=== PATIENT | female | born 1980 | race Caucasian/White ===

== ENCOUNTER → 2018-06-08 10:27 | Outpatient (CLI) | payer OTHER, SELFPAY ==
[2018-06-08 11:35] LABS: Add Manual Diff / Slide Review NO; Basophils Absolute Auto 0 /uL (0-100); Basophils Percent Auto 0.4 % (0-2); Eosinophils Absolute Auto 0 /uL (0-450); Eosinophils Percent Auto 0.6 % (2-4); Hemoglobin 13.4 g/dL (12.0-16.0); Lymphocytes Absolute Auto 1400 /uL (1100-4500); Lymphocytes Percent Auto 20.9 % (25-40); Mean Corpuscular HGB Conc 33.5 % (30-36); Mean Corpuscular Hemoglobin 31.8 PG (26-34); Monocytes Absolute Auto 400 /uL (0-900); Monocytes Percent Auto 5.8 % (3-14); Neutrophils Absolute Auto 4900 /uL (1500-7000); Neutrophils Percent Auto 72.3 % (50-75); Platelet Count 211 X10^3/uL (150-400); Red Blood Cell Count 4.21 X10^6/uL (4.0-5.2); Red Cell Distribution Width 13.9 % (11.6-14.8); White Blood Cell Count 6.8 X10^3/uL (4.5-11.0)
[2018-06-08 11:56] LABS: Hepatitis B Surface Antigen NEGATIVE s/c (NEGATIVE)
[2018-06-08 12:08] LABS: HIV 1 and 2 Antibody NEGATIVE (NEGATIVE); Hep C Virus Ab w/Reflex Quant NEGATIVE s/c (NEGATIVE)
[2018-06-08 12:49] LABS: Appearance Urine UA CLEAR; Bilirubin Urine UA NEGATIVE (NEGATIVE); Color Urine UA YELLOW; Glucose Urine UA NEGATIVE (Negative); Ketones Urine UA NEGATIVE (NEGATIVE); Leukocyte Esterase Urine UA NEGATIVE (NEGATIVE); Nitrite Urine UA NEGATIVE (Negative); Occult Blood Urine UA NEGATIVE (Negative); Protein Urine UA NEGATIVE (Negative); Urobilinogen Urine UA 0.2 E.U./dL (0.2)
[2018-06-11 11:09] LABS: RPR Screen Nonreactive (Nonreactive)
== END ==
PROVIDERS: PCP Family Medicine; Visit Provider Obstetrics & Gynecology
DX: O09.529 Supervision of elderly multigravida, unspecified trimester (principal)
CPT/HCPCS: 36415; 80055; 81003; 86703; 86787; 86803; 86850; 86900; 86901; 87086

== ENCOUNTER → 2018-08-08 12:57 | Outpatient (CLI) | payer OTHER, SELFPAY ==
[2018-08-15 12:43] LABS: AFP, Serum 42.7 ng/mL; Calc Gestational Age 17.4; Cigarette Smoker N; Donated Egg NOT GIVEN; Donor Egg Age NOT GIVEN; Estriol, Free 1.54 ng/mL; Inhibin A, Dimeric 175 pg/mL; Maternal Weight 146 lbs; Number of Fetuses NOT GIVEN; Previous Pregnancy Down Syndro NOT GIVEN; hCG, MoM 1.36
== END ==
PROVIDERS: PCP Family Medicine; Visit Provider Obstetrics & Gynecology
DX: Z34.82 Encounter for supervision of other normal pregnancy, second trimester (principal)
CPT/HCPCS: 36415; 82105; 82677; 84702; 86336

== ENCOUNTER → 2018-08-28 13:19 | Outpatient (CLI) | payer OTHER, SELFPAY ==
--- NOTE | 2018-08-28 13:20 | DI.US.S_ITS ---
PROCEDURE: US OB >= 14 WEEKS FETUS INDICATIONS: ANATOMY SURVEY OUTSIDE/PRIOR DATING DATA: Last menstrual period (LMP): Not available. LMP-based estimated date of delivery (DELISA): Not available. First dating scan (date and location): 06/07/2018. Estimated date of delivery (DELISA) from first dating scan: 01/07/2019. TECHNIQUE: Real-time scanning was performed of the fetus, with image documentation and biometric measurements. Endovaginal scanning: Not performed COMPARISON: [facility], , OB < 14 WEEKS, 06/07/2018, 11:57. [facility], , OB >= 14 WEEKS FETUS, 08/08/2018, 12:52. FINDINGS: General: A single living intrauterine gestation is present. Presentation: Variable. Placenta: Placental position is posterior, without previa. Amniotic fluid index: 14.3 cm, normal range is 5-24 cm. The largest pocket 4.1 cm. heart rate: 149 beats per minute. Maternal cervical canal: C1-6 cm long. Normal lower limit is 2.5 cm. biometrics: Biparietal diameter: 20 weeks 3 days Head circumference: 20 weeks 6 days Abdominal circumference: 21 weeks 4 days Femur length: 20 weeks 5 days Estimated gestational age from initial scan: 20 weeks 0 day. Composite gestational age from present scan: 21 weeks 1 day Estimated weight and percentile: 404 gm; 54% Measurement variability for biometric dating: +/- 7 days from 14 weeks to 15 weeks 6 days gestation, +/- 10 days from 16 weeks to 21 weeks 6 days gestation, +/- 2 weeks from 22 weeks to 27 weeks 6 days gestation, +/- 3 weeks for 28 weeks gestation or later. weight reference: 4500 g or EFW >90/95% is considered macrosomia or large for gestational age. EFW <10% is small for gestational age. EFW 5% or less is considered intra-uterine growth restriction. Anatomic survey: Neuro: Ventricles are non-dilated at less than 10 mm. Cisterna magna is normal at 3-11 mm. Cerebellum is normal in size and morphology. Nuchal skin fold: Normal at less than 6 mm between 14-21 weeks gestational age. Face: Nose and lips, facial profile are normal. Spine: No evidence for spina bifida. Heart: 4-chambered heart is present, with normal ventricular outflow tracts. Diaphragm: Diaphragm is intact. Stomach: Left-sided stomach is present. Kidneys: No hydronephrosis. Normal is less than 5 mm in 2nd trimester, less than 7 mm in 3rd trimester. Cord: 3-vessel cord has orthotopic insertion. Bladder: Normal in size. Extremities: All 4 extremities identified. IMPRESSION: 1. A single living intrauterine gestation with appropriate interval growth. 2. Normal anatomic survey. Dictated by: Charissa Delarosa M.D. on 08/29/2018 at 9:17 Approved by: Charissa Delarosa M.D. on 08/29/2018 at 9:21
== END ==
PROVIDERS: PCP Family Medicine; Visit Provider Obstetrics & Gynecology
DX: Z34.82 Encounter for supervision of other normal pregnancy, second trimester (principal); Z3A.21 21 weeks gestation of pregnancy
CPT/HCPCS: 76811

== ENCOUNTER → 2018-10-11 09:39 | Outpatient (CLI) | payer OTHER, SELFPAY ==
[2018-10-11 11:15] LABS: Hemoglobin 10.8 g/dL (12.0-16.0)
[2018-10-11 11:21] LABS: GTT (PREG) 1 Hour PP 50gm Dose 96 mg/dL (76-139)
== END ==
PROVIDERS: Family Provider Family Medicine; PCP Family Medicine; Visit Provider Obstetrics & Gynecology
DX: Z34.82 Encounter for supervision of other normal pregnancy, second trimester (principal)
CPT/HCPCS: 36415; 82950; 85014; 85018

== ENCOUNTER → 2018-12-08 09:22 | Outpatient (CLI) | payer OTHER, SELFPAY ==
[2018-12-09 16:21] LABS: Strep Grp B PCR POS for Grp B Strep
== END ==
PROVIDERS: Family Provider Family Medicine; PCP Family Medicine; Visit Provider Obstetrics & Gynecology
DX: Z34.83 Encounter for supervision of other normal pregnancy, third trimester (principal); Z36.85 Encounter for antenatal screening for Streptococcus B; Z3A.34 34 weeks gestation of pregnancy
CPT/HCPCS: 87653

== ENCOUNTER 2019-01-04 16:17 | Outpatient (CLI) | payer OTHER, SELFPAY | END 2019-01-04 17:15 | disposition home or self-care (01) | LOC: LABOR 16:31 → OB 01-05 11:26 | PROVIDERS: Family Provider Family Medicine; PCP Family Medicine; Visit Provider Obstetrics & Gynecology | DX: O09.523 Supervision of elderly multigravida, third trimester (principal); O36.8130 Decreased fetal movements, third trimester, not applicable or unspecified; Z3A.38 38 weeks gestation of pregnancy | CPT/HCPCS: 59025; G0378; G0379 ==

== ENCOUNTER 2019-01-07 09:11 | Inpatient (IN) | payer OTHER, SELFPAY ==
[2019-01-07] MEDS: LACTATED RINGERS 1,000 ML 100 ML IV ×3 (11:50→21:00)
[2019-01-07 12:11] LABS: Add Manual Diff / Slide Review NO; Basophils Absolute Auto 0 /uL (0-100); Basophils Percent Auto 0.5 % (0-2); Eosinophils Absolute Auto 100 /uL (0-450); Eosinophils Percent Auto 0.5 % (2-4); Hematocrit 36.2 % (36-46); Hemoglobin 12.6 g/dL (12.0-16.0); Lymphocytes Absolute Auto 1500 /uL (1100-4500); Lymphocytes Percent Auto 15.9 % (25-40); Mean Corpuscular HGB Conc 34.7 % (30-36); Mean Corpuscular Hemoglobin 33.9 PG (26-34); Mean Corpuscular Volume 97.9 fL (80-100); Monocytes Absolute Auto 500 /uL (0-900); Monocytes Percent Auto 5.8 % (3-14); Neutrophils Absolute Auto 7200 /uL (1500-7000); Neutrophils Percent Auto 77.3 % (50-75); Platelet Count 193 X10^3/uL (150-400); Red Cell Distribution Width 14.7 % (11.6-14.8); White Blood Cell Count 9.4 X10^3/uL (4.5-11.0)
[2019-01-07] MEDS: PENICILLIN G POTASSIUM 5,000,000 UNIT in DEXTROSE 5% IN WATER 250 ML IV (12:25)
[2019-01-07] MEDS: PENICILLIN G POTASSIUM 3,000,000 UNIT/50 ML FROZ.PIGGY 100 UNIT IV (17:20)
[2019-01-07 17:30] VITALS: BP 113/76
[2019-01-07] MEDS: OXYTOCIN PREMIX 30 UNIT/500 ML PLAST..BAG IV (17:47)
--- NOTE | 2019-01-07 18:23 | PM.OBHP.1 ---
OB HPI Date/Time Date of admission: 01/07/19 Date Patient Seen: 01/07/19 Time Patient Seen: 18:25 History of Present Condition Chief complaint: OBSERVATION : 3 Para: 1 Estimated Date of Delivery: 01/13/19 Estimated Gestational Age (weeks): 39+1 Narrative: Florence Jiménez is a 38 year old female 3 para 1 who presented earlier today in early labor. She is group B strep positive and received 1 dose of antibiotics. She was sent home to walk and came back 4 hours later for 2nd dose of antibiotics. She is 4-5 cm/85% effaced Indications Indication for induction OB: other (GBS pos, Early labor) History of Present care: good care, initiated at week # (8), number of visits (10) and pounds weight gain (33) Dating criteria: LMP confirmed by 1st trimester US Ultrasounds: normal 1st trimester US and normal mid trimester US Obstetrical complications: none Medical complications: none Preadmission Labs Blood type: A (+) positive -: Antibody screen: negative, GBS status: positive, HBsAG: negative, HIV: negative and RPR/VDLR: negative -: Chlamydia screen: not detected and Gonorrhea screen: not detected -: Rubella: immune and Varicella: immune HCT: 31 HCAB: negative PAP: Normal Quad screen: Normal Urine: negative 1 hr GTT: 96 Prior (ies) History: 10/02 D&C 14 wks Cystic hygroma 09/28/15 8#1oz epid IH Evaluation Evaluation Baseline heart rate: 140 Variability: Moderate (11-25) monitor accelerations: Present monitor decelerations: Absent Contraction Frequency (minutes): 4 Uterine Contraction Intensity: Moderate Category of Tracing: I Cervical dilation (cm): 4 Cervical effacement (%): 85 station: -1 Laboratory results: Laboratory Tests 01/07/19 01/07/19 11:50 11:50 WBC 9.4 RBC 3.70 L Hgb 12.6 Hct 36.2 MCV 97.9 MCH 33.9 MCHC 34.7 RDW 14.7 Plt Count 193 Neut % (Auto) 77.3 H Lymph % (Auto) 15.9 L [place] % (Auto) 5.8 Eos % (Auto) 0.5 L Baso % (Auto) 0.5 Neut # (Auto) 7200 H Lymph # (Auto) 1500 [place] # (Auto) 500 Eos # (Auto) 100 Baso # (Auto) 0 Blood Type A Positive Antibody Screen Negative PFSH Surgical History (Updated 07/19/17 @ 06:02 by Conversion Provider) Status post dilation and curettage (09/19/14) Family History (Updated 01/28/15 @ 00:00 by Conversion Provider) Brother Age: 44 Hypertension Brother Age: 33 Hypertension Father Age: 70 Cancer Heart disease Hypertension Grandmother Cancer Grandfather Cancer Grandmother Cancer Sister Age: 46 Cancer Sister Age: 33 Cancer Social History Smoking Status: Never smoker Family History (Updated 01/28/15 @ 00:00 by Conversion Provider) Brother Age: 44 Hypertension Brother Age: 33 Hypertension Father Age: 70 Cancer Heart disease Hypertension Grandmother Cancer Grandfather Cancer Grandmother Cancer Sister Age: 46 Cancer Sister Age: 33 Cancer Social History Smoking Status: Never smoker Meds Home Medications and Allergies Home Medications Medication Instructions Recorded Confirmed Type [Probiotic] #0 11/10/15 03/12/18 History prenat.vits,stewart,toy-zhnd-vggcv 1 tab PO DAILY 05/31/18 05/31/18 History Allergies Allergy/AdvReac Type Severity Reaction Status Date / Time cephalexin [CEPHALEXIN] AdvReac Severe C.Difficile Verified 03/12/18 15:45 Exam Vital Signs (past 8 hours): - 01/07/19 17:30 Blood Pressure 113/76 Narrative Exam Narrative: Generally: Patient in mild distress secondary to contractions Fundal height: 37 cm Estimated weight: 7-1/2 lb Extremities: Negative Homans, no edema Objective Labs Result Diagrams: 01/07/19 11:50 Labs: Laboratory Results - last 24 hr 01/07/19 01/07/19 11:50 11:50 WBC 9.4 RBC 3.70 L Hgb 12.6 Hct 36.2 MCV 97.9 MCH 33.9 MCHC 34.7 RDW 14.7 Plt Count 193 Neut % (Auto) 77.3 H Lymph % (Auto) 15.9 L [place] % (Auto) 5.8 Eos % (Auto) 0.5 L Baso % (Auto) 0.5 Neut # (Auto) 7200 H Lymph # (Auto) 1500 [place] # (Auto) 500 Eos # (Auto) 100 Baso # (Auto) 0 Blood Type A Positive Antibody Screen Negative Assessment and Plan Assessment and Plan Assessment and Plan narrative: Assessment: 38-year-old 3 para 1 at 39-,1/7 weeks gestation in early labor and positive group B strep Advanced maternal age Plan: Status post 2 doses of antibiotics for GBS prophylaxis Artificial rupture of membranes with copious amounts of clear amniotic fluid Epidural as necessary Pitocin augmentation Expected management to spontaneous vaginal delivery Time Spent with Patient Total time spent with greater than 50% in coordination of care (as documented) at patient's floor/unit and/or counseling patient:: 15-24 minutes
[2019-01-07] MEDS: FENT 2MCG/ML BUPIV 0.125% EPI 200 MCG/100 ML PLAST..BAG 5 MCG EPIDURAL (20:33)
--- NOTE | 2019-01-07 22:20 | PM.OBPRVD ---
 Events: Labor Augmentation Labor & Delivery Delivery date: 01/07/19 Cervical ripening method: none Induction method: none Delivery augmentation: rupture of membranes and pitocin Delivery monitor: external FHT and external uterine Route of delivery: Episiotomy description: None L&D Laceration Description: Superficial (Left labial, introitus 1.5cm Left vulvar inclusion cyst removed) Delivery repair: vicryl and chromic Estimated blood loss (mL): 100 Anesthesia type: Epidural Complications: None Narrative: Patient complete and pushed for 13 minutes. At 9:50 p.m., a live male delivered with vacuum assistance over an intact perineum. Vacuum applied due to deep variable decelerations with pushing. The vacuum was removed. A nuchal cord x1 was reduced on the perineum. The remainder of the body delivered without difficulty and was placed on mom's abdomen. After the cord stopped pulsing, the cord was double clamped and cut. Cord bloods were obtained. Pitocin was given in the IV fluids. At 10:03 p.m., the placenta delivered intact with a three-vessel cord. The fundus was massaged to firm. An in-and out catheter was performed with a small amount of clear yellow urine. A superficial left labial laceration was repaired with 4 0 chromic with simple interrupted sutures. A superficial introitus laceration was repaired with 4 0 chromic with simple interrupted sutures. An inclusion cyst on the left vulva, 1.5 cm, was excised. Interrupted sutures with 4 0 Vicryl were used for reapproximation. Estimated blood loss 100 cc. Apgars 9 at 1 minute and 9 at 5 minutes. Epidural analgesia. . Mom and infant stable to recovery. Plan for aftercare: To routine care
[2019-01-08] MEDS: IBUPROFEN 600 MG TABLET PO ×4 (05:08→23:27)
[2019-01-08 07:32] LABS: Hematocrit 32.3 % (36-46); Hemoglobin 11.3 g/dL (12.0-16.0)
[2019-01-08] MEDS: DOCUSATE 250 MG CAPSULE PO (09:19)
[2019-01-08] MEDS: PRENATAL VIT,CALC/IRON/FOLIC 1 TABLET 1 TAB PO (09:19)
--- NOTE | 2019-01-08 18:57 | PM.OBPN.1 ---
Subjective - OB Subjective Patient comments: no complaints and pain well controlled baby status: doing well and nursing well feeding status: exclusively breast feeding Narrative: Patient is a 38-year-old 2 para 2 day # 1 status post spontaneous vaginal delivery. Patient complained of a headache which has resolved after some coffee and fluids. Date Patient Seen: 01/08/19 Time Patient Seen: 13:30 Exam Vital Signs (past 8 hours): Generally: Patient is sitting up in bed, no acute distress Fundus: Firm at U -1 Extremities: Negative Homans, no edema Objective Labs Result Diagrams: 01/08/19 Unknown Labs: Laboratory Results - last 24 hr 01/08/19 Unknown Hgb 11.3 L Hct 32.3 L Assessment & Plan Plan day: 1 plan OB: routine care Time Spent With Patient Time: Total time spent is greater than 50% in coordination of care (as documented) at patient's floor/unit and/or counseling patient: Time with patient: 15-24 minutes
[2019-01-09] MEDS: IBUPROFEN 600 MG TABLET PO (05:11)
[2019-01-09 10:26] VITALS: BP 113/76; PULSE 80; RESP 18; TEMP 36.9
--- NOTE | 2019-01-09 18:10 | P.DS_ITS ---
Discharge Providers Provider Date of admission: 01/07/19 09:11 Discharge Date: 01/09/19 Primary care physician: Gabby Henning MD Consults: 01/07/19 23:31 Consult to Supervisor Line Department Routine Comment: Discharge provider: Jessica Sigala MD Summary Hospital Course Date Patient Seen: 01/09/19 Time Patient Seen: 08:30 Procedures: Artificial rupture of membranes Pitocin augmentation of labor Epidural analgesia Vacuum assisted vaginal delivery Superficial left labial laceration repair Hospital Course: Patient is a 38-year-old 2 para 2 who presented in early/active labor and was 4 cm dilated. She was group B strep positive. A decision was made to keep her in the hospital and start prophylactic antibiotics. Once she received her 2nd dose of antibiotics, artificial rupture membranes was performed with clear amniotic fluid. She received an epidural for pain management. She had a vacuum assisted vaginal delivery without complication. She was discharged home on day # 2. was going well. Pain was well controlled with ibuprofen. Peripartum Data Infant Delivery Method: Assisted Delivery (Vacuum) Laceration description: Superficial (Left labial) Episiotomy description: None Procedures: Pitocin augmentation of labor Artificial rupture of membranes Epidural analgesia Vacuum assisted vaginal delivery Left labial laceration repair complications: none Status at Discharge Cognitive/behavioral status at discharge: oriented Functional status at discharge: independent ambulation Overall status at discharge: patient is progressing back to baseline Time Spent with Patient Time attestation: Total time spent providing and/or coordinating discharge services: Time spent: Less than 30 minutes Objective Labs Result Diagrams: 01/08/19 Unknown Exam Vital Signs (past 8 hours): - 01/09/19 10:26 Temperature 98.4 F Pulse Rate 80 Respiratory Rate 18 Blood Pressure 113/76 Narrative Exam Narrative: Generally: A well-developed, well-nourished female, no acute distress Fundus: Firm at U -1 Extremities: Negative Homans, no edema Discharge Plan Discharge Plan Patient Disposition: Home Discharge comment: Call with fever, chills or bleeding vaginally more than a pad in an hour Discharge Med Rec/Prescriptions Prescriptions: Continued prenat.vits,stewart,aqn-jnjr-rzjpo tablet 1 tab PO DAILY RF: 0 Follow up/Referrals: Jessica Sigala MD [Physician] - 02/20/19 11:00 am (to see Dr Sigala on February 20 at 1100am) Provider Discharge Instructions Diet: Regular Activity: No intercourse Skin/Wound/Dressing Care Report to your healthcare provider any signs of infection, such as:: chills, fever, increased pain and unusual drainage Visit Report/Discharge Packet Instructions: DI for Labor and Delivery, Vaginal Stand Alone Forms: Discharge: Care Discharge Data Primary Care Provider: Gabby Henning Discharges patient from system. Discharge Date/Time: 01/09/19 12:45
== END 2019-01-09 12:45 | disposition home or self-care (01) | DRG 768 ==
PROVIDERS: Admitting Provider Obstetrics & Gynecology; PCP Family Medicine; Visit Provider Obstetrics & Gynecology
DX: O99.824 Streptococcus B carrier state complicating childbirth (principal); Z37.0 Single live birth; Z3A.39 39 weeks gestation of pregnancy; O70.0 First degree perineal laceration during delivery; L72.0 Epidermal cyst; O69.81X0 Labor and delivery complicated by cord around neck, without compression, not applicable or unspecified
CPT/HCPCS: 01967; 36415; 59025; 59050; 59400; 85014; 85018; 85025; 86850; 86900; 86901; G0379; J2540; J2590

== ENCOUNTER → 2019-07-25 16:24 | Outpatient (CLI) | payer OTHER, SELFPAY ==
[2019-07-25 16:52] LABS: Bacteria Urine None Seen; RBC Urine None Seen (0-5/HPF); WBC Urine None Seen (0-5/HPF)
[2019-07-25 18:04] LABS: Appearance Urine UA CLEAR; Bilirubin Urine UA NEGATIVE (NEGATIVE); Color Urine UA YELLOW; Glucose Urine UA NEGATIVE (Negative); Ketones Urine UA NEGATIVE (NEGATIVE); Leukocyte Esterase Urine UA NEGATIVE (NEGATIVE); Nitrite Urine UA NEGATIVE (Negative); Occult Blood Urine UA NEGATIVE (Negative); Protein Urine UA NEGATIVE (Negative); Specific Gravity Urine UA <=1.005 (1.000-1.035); Urobilinogen Urine UA 0.2 E.U./dL (0.2)
[2019-07-25 18:14] LABS: Squamous Epithelial Cell Urine 0-1 /HPF (0-5/HPF); pH Urine UA 6.5 (4.5-8.0)
[2019-07-25 18:15] LABS: Culture Indicated Urine Cult Not Indicated
== END ==
PROVIDERS: PCP Family Medicine; Referring Provider Family Medicine; Visit Provider Family Medicine
DX: R10.2 Pelvic and perineal pain (principal)
CPT/HCPCS: 81001

== ENCOUNTER → 2019-08-02 12:25 | Outpatient (CLI) | payer OTHER, SELFPAY | PROVIDERS: PCP Family Medicine; Visit Provider Family Medicine | DX: M54.5 Low back pain (principal) | CPT/HCPCS: 87077; 87086 ==

== ENCOUNTER → 2020-04-12 10:46 | Outpatient (CLI) | payer BC, SELFPAY ==
[2020-04-12 12:44] LABS: Adenovirus F 40/41 Not Detected (Not Detect); Astrovirus Not Detected (Not Detect); Campylobacter Not Detected (Not Detect); Clostridium difficile toxin AB Not Detected (Not Detect); Cryptosporidium Not Detected (Not Detect); Cyclospora cayetanensis Not Detected (Not Detect); Entamoeba histolytica Not Detected (Not Detect); Enteroaggregative E.coli Not Detected (Not Detect); Enteropathogenic E.coli Not Detected (Not Detect); Enterotoxigenic E.coli It/st Not Detected (Not Detect); Giardia lamblia Not Detected (Not Detect); Norovirus GI/GII Not Detected (Not Detect); Plesiomonsa shigelloides Not Detected (Not Detect); Rotavirus A Not Detected (Not Detect); Salmonella Not Detected (Not Detect); Sapovirus Not Detected (Not Detect); Shiga-like toxin-prod E.coli Not Detected (Not Detect); Shigella/Enteroinvasive E.coli Not Detected (Not Detect); Vibrio Not Detected (Not Detect); Vibrio cholerae Not Detected (Not Detect); Yersinia enterocolitica Not Detected (Not Detect)
== END ==
PROVIDERS: PCP Family Medicine; Referring Provider Physician Assistant; Visit Provider Physician Assistant
DX: Z87.19 Personal history of other diseases of the digestive system (principal); Z86.19 Personal history of other infectious and parasitic diseases
CPT/HCPCS: 87507

== ENCOUNTER → 2020-06-09 13:29 | Outpatient (CLI) | payer BC, SELFPAY ==
[2020-06-09 13:32] LABS: Bacteria Urine None Seen; RBC Urine None Seen (0-5/HPF); WBC Urine None Seen (0-5/HPF)
[2020-06-09 13:56] LABS: Appearance Urine UA CLEAR; Bilirubin Urine UA NEGATIVE (NEGATIVE); Color Urine UA YELLOW; Glucose Urine UA NEGATIVE (Negative); Ketones Urine UA NEGATIVE (NEGATIVE); Leukocyte Esterase Urine UA NEGATIVE (NEGATIVE); Nitrite Urine UA NEGATIVE (Negative); Occult Blood Urine UA TRACE-LYSED (Negative); Protein Urine UA NEGATIVE (Negative); Specific Gravity Urine UA <=1.005 (1.000-1.035); Urobilinogen Urine UA 0.2 E.U./dL (0.2)
[2020-06-09 14:10] LABS: Amorphous Sediment Urine 1+; Culture Indicated Urine Cult Not Indicated
== END ==
PROVIDERS: PCP Family Medicine; Referring Provider Family Medicine; Visit Provider Family Medicine
DX: R30.0 Dysuria (principal); R39.15 Urgency of urination
CPT/HCPCS: 81001

== ENCOUNTER → 2021-01-16 14:49 | Outpatient (CLI) | payer BC, SELFPAY ==
--- NOTE | 2021-01-16 14:49 | DI.US.S_ITS ---
PROCEDURE: US OB <= 14 WEEKS FETUS INDICATIONS: INITIAL US FOR DATING AND VIABILITY OUTSIDE/PRIOR DATING DATA: Last menstrual period (LMP): November 04, 2000 LMP-based estimated date of delivery (DELISA): August 11, 2021 First dating scan (date and location): January 16, 2021 Estimated date of delivery (DELISA) from first dating scan: August 04, 2021 TECHNIQUE: Real-time scanning was performed of the fetus and maternal pelvic organs, with image documentation. Endovaginal scanning was also performed to better visualize the fetus and maternal ovaries. COMPARISON: None. FINDINGS: Embryo: Single living intrauterine identified. pole identified. [place]-rump length measures 4.6 centimeters corresponding to ultrasound estimated gestational age of 11 weeks 3 days. Heart rate: 165 beats per minute. Measurement variability in dating: +/- 4 weeks by LMP, +/- 7 days by mean sac diameter (use before 6 weeks gestation if crown-rump length not able to be measured), +/- 5 days by crown-rump length (up to 8 weeks 6 days gestation), +/- 7 days by crown-rump length (up to 13 weeks 6 days gestation). Maternal organs: Ovary not visualized and cannot be evaluated. Left ovary is sonographically normal. Cervix is closed and measures 3.9 centimeters. IMPRESSION: Single living intrauterine with ultrasound estimated gestational age of 11 weeks 3 days corresponding to ultrasound DELISA of August 04, 2021. Dictated by: Flor Celis MD, PhD on 01/16/2021 at 17:22 Approved by: Flor Celis MD, PhD on 01/16/2021 at 17:23
== END ==
PROVIDERS: PCP Family Medicine; Referring Provider Obstetrics & Gynecology; Visit Provider Obstetrics & Gynecology
DX: Z34.81 Encounter for supervision of other normal pregnancy, first trimester (principal); Z3A.11 11 weeks gestation of pregnancy
CPT/HCPCS: 76801; 76817

== ENCOUNTER 2021-01-23 17:52 | Emergency (ER) | payer BC, SELFPAY ==
[2021-01-23 17:59] VITALS: BP 144/76; PULSE 78; RESP 12; TEMP 36.7; O2SAT 100; BMI 19.5
--- NOTE | 2021-01-23 18:04 | DI.US.S_ITS ---
PROCEDURE: US OB <= 14 WEEKS FETUS INDICATIONS: 11 wks, vaginal bleeding OUTSIDE/PRIOR DATING DATA: Last menstrual period (LMP): 11/04/2020 . LMP-based estimated date of delivery (DELISA): 08/11/2021 . First dating scan (date and location): 01/16/[address] [facility] . Estimated date of delivery (DELISA) from first dating scan: 08/04/2021. TECHNIQUE: Real-time scanning was performed of the fetus and maternal pelvic organs, with image documentation. Endovaginal scanning: Performed for better visualization of the fetus and maternal adnexal structures. COMPARISON: [facility], US, OB <= 14 WEEKS FETUS, 01/16/2021, 15:18. FINDINGS: Embryo : There is a single intrauterine redemonstrated with a crown-rump length of 5.8 cm corresponding to gestational age of 12 weeks 2 days. A heterogeneous irregular perigestational hypoechoic collection is demonstrated consistent with a subchorionic hematoma measuring approximately 3.5 x 1.5 x 1.8 cm. Heart rate: 152 beats per minute. Measurement variability in dating: +/- 4 weeks by LMP, +/- 7 days by mean sac diameter (use before 6 weeks gestation if crown-rump length unable to be measured), +/- 5 days by crown-rump length (up to 8 weeks 6 days gestation), +/- 7 days by crown-rump length (up to 13 weeks 6 days gestation). Maternal organs: The right ovary was not well seen. The left ovary is normal in size. IMPRESSION: 1. Single living intrauterine with calculated gestational age of 12 weeks 2 days. 2. Irregular perigestational collection consistent with a subchorionic hematoma. Recommend clinical follow-up and a repeat ultrasound if indicated. Dictated by: Nando James M.D. on 01/23/2021 at 19:31 Approved by: Nando James M.D. on 01/23/2021 at 19:35
[2021-01-23 18:32] LABS: Add Manual Diff / Slide Review NO; Basophils Absolute Auto 100 /uL (0-100); Basophils Percent Auto 0.8 % (0-2); Eosinophils Absolute Auto 100 /uL (0-450); Eosinophils Percent Auto 0.9 % (2-4); Hematocrit 34.5 % (36-46); Hemoglobin 11.7 g/dL (12.0-16.0); Lymphocytes Absolute Auto 2100 /uL (1100-4500); Lymphocytes Percent Auto 28.1 % (25-40); Mean Corpuscular HGB Conc 33.8 % (30-36); Mean Corpuscular Hemoglobin 32.1 PG (26-34); Mean Corpuscular Volume 94.8 fL (80-100); Monocytes Absolute Auto 500 /uL (0-900); Neutrophils Absolute Auto 4800 /uL (1500-7000); Neutrophils Percent Auto 63.2 % (50-75); Platelet Count 204 X10^3/uL (150-400); Red Blood Cell Count 3.64 X10^6/uL (4.0-5.2); Red Cell Distribution Width 14.5 % (11.6-14.8); White Blood Cell Count 7.6 X10^3/uL (4.5-11.0)
[2021-01-23 18:57] LABS: Alanine Aminotransferase 11 IU/L (<35); Albumin Globulin Ratio 1.3 (1.0-2.8); Alkaline Phosphatase 53 U/L (38-126); Aspartate Aminotransferase 23 IU/L (14-36); Bilirubin Total 0.4 mg/dL (0.2-1.3); Blood Urea Nitrogen 13 mg/dL (7-17); Calcium 9.1 mg/dL (8.4-10.2); Carbon Dioxide 24 mmol/L (22-32); Chloride 103 mmol/L (98-107); Estimated Glomerular Filt Rate > 60.0 mL/min (>60); Globulin 3.2 g/dL (1.7-4.1); Glucose 88 mg/dL (70-100); HEMOLYSIS < 15 (0-50); Potassium 3.6 mmol/L (3.4-5.1); Sodium 134 mmol/L (137-145); Total Protein 7.2 g/dL (6.3-8.2)
[2021-01-23 19:19] VITALS: BP 120/88; PULSE 59; PULSE 70; O2SAT 100
[2021-01-23 19:30] VITALS: BP 98/64; PULSE 57; O2SAT 100
[2021-01-23 19:37] LABS: HCG Quantitative /Beta subunit 115390 mIU/mL
--- NOTE | 2021-01-23 19:55 | ED.PREGNANCY ---
HPI - General Chief complaint: OB/Uterine Contractions Stated complaint: 11 Wks , Bleeding Time Seen by Provider: 01/23/21 18:04 Source: patient Mode of arrival: Ambulatory Limitations: no limitations History of Present Illness HPI Narrative: This is a 40-year-old A1 with prior D&C that is approximately 11 weeks patient is established with Dr. Sigala for her care. Patient states today she had a gush of fluid of fluid leaking and noted bright red blood and states she went through about 1 pad shortly after this. Patient states bleeding has slowed at this time. She has been having some lower abdominal cramping. No lightheadedness or passing out. She has nausea with her but is able to tolerate food and drink. She denies any chest pain or shortness of breath. No dysuria, frequency or urgency. Patient has not had any other vaginal discharge or odor. She denies any other medications besides a daily probiotic and vitamin. She has had 1 D and C but no other surgical history. No tobacco, no alcohol or illicit. She is accompanied by her significant other. Related Data : 4 Para: 2 Total number of abortions (spontaneous and elective): 1 Home Medications Medication Instructions Recorded Confirmed prenat.vits,stewart,wec-nrsb-spkxh 1 tab PO DAILY 05/31/18 03/22/19 probiotics PO 08/02/19 Allergies Allergy/AdvReac Type Severity Reaction Status Date / Time cephalexin [CEPHALEXIN] AdvReac Severe C.Difficile Verified 01/23/21 18:03 Review of Systems Review of Systems ROS Unobtainable: All systems reviewed & are unremarkable except as noted in HPI and below Exam Narrative Exam Narrative: GENERAL: Alert and oriented x three, thin female in mild distress. HEENT: Head normocephalic, atraumatic, EOMI, pupils reactive, face symmetric, moist mucous membranes NECK: Supple, full range of motion CARDIOVASCULAR: Regular rate and rhythm without murmurs, rubs or gallops. RESPIRATORY: Breath sounds equal bilaterally, no wheezes rales or rhonchi. ABDOMEN: Soft, mild suprapubic tenderness. Normoactive bowel sounds all 4 quadrants. No guarding or rebound, rigidity, no mass : No CVA tenderness EXTREMITIES: Normal range of motion, no clubbing or edema. Neurovascularly intact NEUROLOGICAL: Cranial nerves II through XII grossly intact. Moving all extremities SKIN: Warm, dry, no petechiae, no rashes or lesions. Initial Vital Signs Initial Vital Signs: Vital Signs Temperature 98.0 F 01/23/21 17:59 Pulse Rate 78 01/23/21 17:59 Respiratory Rate 12 01/23/21 17:59 Blood Pressure 144/76 H 01/23/21 17:59 Pulse Oximetry 100 01/23/21 17:59 Course Orders Ordered: ED Orders 01/23/21 18:04 US OB <= 14 weeks fetus Stat 01/23/21 18:20 ABO RH Type Stat Complete Blood Count AUTO DIFF Stat Comprehensive Metabolic Panel Stat HCG Quantitative /Beta subunit Stat Vital Signs Vital signs: Vital Signs - 8 hr 01/23/21 20:00 01/23/21 21:07 Pulse Rate 60 53 L Respiratory Rate 18 Blood Pressure 108/59 L 110/67 Pulse Oximetry 100 100 MDM - OB/Uterine Contractions Lab Data Result diagrams: 01/23/21 18:20 01/23/21 18:20 Labs: Lab Results 01/23/21 01/23/21 01/23/21 Range/Units 18:20 18:20 18:20 WBC 7.6 (4.5-11.0) X10^3/uL RBC 3.64 L (4.0-5.2) X10^6/uL Hgb 11.7 L (12.0-16.0) g/dL Hct 34.5 L (36-46) % MCV 94.8 (80-100) fL MCH 32.1 (26-34) PG MCHC 33.8 (30-36) % RDW 14.5 (11.6-14.8) % Plt Count 204 (150-400) X10^3/uL Neut % (Auto) 63.2 (50-75) % Lymph % (Auto) 28.1 (25-40) % [place] % (Auto) 7.0 (3-14) % Eos % (Auto) 0.9 L (2-4) % Baso % (Auto) 0.8 (0-2) % Neut # (Auto) 4800 (5886-3449) /uL Lymph # (Auto) 2100 (1818-9928) /uL [place] # (Auto) 500 (0-900) /uL Eos # (Auto) 100 (0-450) /uL Baso # (Auto) 100 (0-100) /uL Sodium 134 L (137-145) mmol/L Potassium 3.6 (3.4-5.1) mmol/L Chloride 103 (98-107) mmol/L Carbon Dioxide 24 (22-32) mmol/L BUN 13 (7-17) mg/dL Creatinine 0.59 (0.52-1.04) mg/dL Estimated GFR > 60.0 (>60) mL/min BUN/Creatinine Ratio 22.0 (6-22) Glucose 88 (70-100) mg/dL Calcium 9.1 (8.4-10.2) mg/dL Total Bilirubin 0.4 (0.2-1.3) mg/dL AST 23 (14-36) IU/L ALT 11 (<35) IU/L Alkaline Phosphatase 53 (38-126) U/L Total Protein 7.2 (6.3-8.2) g/dL Albumin 4.0 (3.5-5.0) g/dL Globulin 3.2 (1.7-4.1) g/dL Albumin/Globulin Ratio 1.3 (1.0-2.8) HCG, Quant 603307 mIU/mL Blood Type A Positive Urine Dip Bedside Urine Glucose Negative Bedside Urine Bilirubin - Negative Bedside Urine Ketone - Negative Urine Specific [place] 1.030 Bedside Urine Occult Blood +++ Bedside Urine pH 6.0 Bedside Urine Protein - Negative Bedside Urine Urobilinogen - Negative Bedside Urine Nitrite - Negative Bedside Urine Leukocytes - Negative Esterase Imaging Data US - OB: Radiologist's Impression: [place] [address] Ultrasound Report Signed Patient: Florence Jiménez MR#: [id number] : 1980 Acct:[id number] Age/Sex: 40 / F Date of Service: 01/23/21 Loc: ED Accession Number: [id number] ?? Procedure: US OB <= 14 weeks fetus Ordering Provider: Jesenia Jones D.O. PROCEDURE:? US OB <= 14 WEEKS FETUS ? INDICATIONS:? 11 wks, vaginal bleeding ? OUTSIDE/PRIOR DATING DATA:? Last menstrual period (LMP):? 11/04/2020 .? LMP-based estimated date of delivery (DELISA):? 08/11/2021 .? [facility]? Estimated date of delivery (DELISA) from first dating scan:? 08/04/2021.? ? TECHNIQUE:? Real-time scanning was performed of the fetus and maternal pelvic organs, with image documentation.? Endovaginal scanning:? Performed for better visualization of the fetus and maternal adnexal structures.? ? COMPARISON:? [facility], , US OB <= 14 WEEKS FETUS, 01/16/2021, 15:18. ? FINDINGS:? ? Embryo :? There is a single intrauterine redemonstrated with a crown-rump length of 5.8 cm corresponding to gestational age of 12 weeks 2 days.? A heterogeneous irregular perigestational hypoechoic collection is demonstrated consistent with a subchorionic hematoma measuring approximately 3.5 x 1.5 x 1.8 cm. Heart rate:? 152 beats per minute. ? Measurement variability in dating: +/- 4 weeks by LMP, +/- 7 days by mean sac diameter (use before 6 weeks gestation if crown-rump length unable to be measured), +/- 5 days by crown-rump length (up to 8 weeks 6 days gestation), +/- 7 days by crown-rump length (up to 13 weeks 6 days gestation).? ? Maternal organs:? The right ovary was not well seen.? The left ovary is normal in size. ? ? IMPRESSION:? ? 1. Single living intrauterine with calculated gestational age of 12 weeks 2 days. ? 2. Irregular perigestational collection consistent with a subchorionic hematoma.? Recommend clinical follow-up and a repeat ultrasound if indicated.? ? ? Dictated by: Nando James M.D. on 01/23/2021 at 19:31 ? ? Approved by: Nando James M.D. on 01/23/2021 at 19:35?? MDM Narrative Medical decision making narrative: This is a 40-year-old female who comes in with acute onset of vaginal bleeding that is 12 weeks 2 days on ultrasound today with a irregular. Gestational collection consistent with subchorionic hematoma. Patient is A positive and does not require RhoGAM. Patient has a appointment set up for this coming Tuesday in 2 days. At this time pelvic rest, Tylenol as needed and discussed return precautions with patient. Patient is aware that she will require some watchful waiting and time to see if there is worsening of the bleed with potential for miscarriage or if it stabilizes and improves. All questions answered. Discharge Plan Departure Patient Disposition: Home Clinical Impression: Subchorionic hematoma Activity Restrictions/Additional Instructions: Follow up with Dr. Sigala at your appointment on Tuesday. You may take Tylenol to a 1000 mg every 8 hours. Make sure you are drinking plenty of water and staying hydrated. Your imaging today shows a subchorionic hemorrhage. Heart rate is 152 beats per minute on her ultrasound imaging which is in normal range. Is recommended that you pelvic rest. No lifting of heavy objects, sexual activity or tampons. You can still participate in normal activities. Please return for rapidly worsening abdominal pain, lightheadedness or passing out, chest pain or shortness of breath, persistent vomiting, bleeding through more than 1 pad an hour, rapidly worsening bleeding or other new or concerning symptoms. Prescriptions: No Action probiotics PO RF: 0 prenat.vits,stewart,lvp-vhqm-njhhu tablet 1 tab PO DAILY RF: 0 Referrals: Jessica Sigala MD [Physician] - Gabby Henning MD [Primary Care Provider] -
[2021-01-23 20:00] VITALS: BP 108/59; PULSE 60; O2SAT 100
[2021-01-23 21:07] VITALS: BP 110/67; PULSE 53; RESP 18; O2SAT 100
== END 2021-01-23 21:15 | disposition home or self-care (01) ==
PROVIDERS: Emergency Provider Emergency Medicine; PCP Family Medicine
DX: O41.8X90 Other specified disorders of amniotic fluid and membranes, unspecified trimester, not applicable or unspecified (principal); Z3A.11 11 weeks gestation of pregnancy
CPT/HCPCS: 36415; 76801; 76817; 80053; 81003; 84702; 85025; 86900; 86901; 99284

== ENCOUNTER → 2021-01-26 11:40 | Outpatient (CLI) | payer BC, SELFPAY ==
[2021-01-26 14:39] LABS: Urine N gonorrhoeae NOT DETECTED
[2021-01-26 14:40] LABS: Urine Chlamydia NOT DETECTED
== END ==
PROVIDERS: PCP Family Medicine; Referring Provider Obstetrics & Gynecology; Visit Provider Obstetrics & Gynecology
DX: Z34.81 Encounter for supervision of other normal pregnancy, first trimester (principal); Z3A.12 12 weeks gestation of pregnancy
CPT/HCPCS: 87491; 87591

== ENCOUNTER → 2021-02-23 10:07 | Outpatient (CLI) | payer BC, SELFPAY ==
[2021-02-23 13:10] LABS: Add Manual Diff / Slide Review NO; Basophils Absolute Auto 0 /uL (0-100); Basophils Percent Auto 0.5 % (0-2); Eosinophils Absolute Auto 100 /uL (0-450); Eosinophils Percent Auto 1.4 % (2-4); Hematocrit 32.5 % (36-46); Hemoglobin 11.2 g/dL (12.0-16.0); Lymphocytes Absolute Auto 1400 /uL (1100-4500); Lymphocytes Percent Auto 20.3 % (25-40); Mean Corpuscular HGB Conc 34.5 % (30-36); Mean Corpuscular Hemoglobin 33.1 PG (26-34); Mean Corpuscular Volume 96.1 fL (80-100); Monocytes Absolute Auto 500 /uL (0-900); Monocytes Percent Auto 6.9 % (3-14); Neutrophils Absolute Auto 5000 /uL (1500-7000); Neutrophils Percent Auto 70.9 % (50-75); Platelet Count 224 X10^3/uL (150-400); Red Blood Cell Count 3.38 X10^6/uL (4.0-5.2); Red Cell Distribution Width 14.2 % (11.6-14.8)
[2021-02-23 14:27] LABS: Appearance Urine UA CLEAR; Bilirubin Urine UA NEGATIVE (NEGATIVE); Color Urine UA YELLOW; Glucose Urine UA NEGATIVE (Negative); Ketones Urine UA NEGATIVE (NEGATIVE); Leukocyte Esterase Urine UA NEGATIVE (NEGATIVE); Nitrite Urine UA NEGATIVE (Negative); Occult Blood Urine UA NEGATIVE (Negative); Protein Urine UA NEGATIVE (Negative); Urobilinogen Urine UA 0.2 E.U./dL (0.2)
[2021-02-23 17:48] LABS: Hepatitis B Surface Antigen NEGATIVE s/c (NEGATIVE); Rubella Antibody IgG 24.3 IU/mL (>15)
[2021-02-23 18:17] LABS: HIV 1 & 2 Ab/Ag 4th Gen Combo NEGATIVE (NEGATIVE); Hep C Virus Ab w/Reflex Quant NEGATIVE s/c (NEGATIVE)
[2021-02-24 09:45] LABS: RPR Screen Non Reactive (Non Reactive)
[2021-02-26 23:22] LABS: Estriol, Free 0.83 ng/mL (.); Inhibin A, Dimeric 126.52 pg/mL (.); Inhibin A, MoM 0.76 (.); Maternal Ethnicity Caucasian (.); Maternal Weight 145 lbs (.); Number of Fetuses No (.); OSBR Risk 1 IN 10000 (.); Results Report (.); Test Results *Screen Negative* (.); hCG, MoM 1.47 (.); hCG, Serum 65418 mIU/mL (.)
== END ==
PROVIDERS: PCP Family Medicine; Referring Provider Obstetrics & Gynecology; Visit Provider Obstetrics & Gynecology
DX: Z34.82 Encounter for supervision of other normal pregnancy, second trimester; Z3A.16 16 weeks gestation of pregnancy
CPT/HCPCS: 36415; 80055; 81003; 82105; 82677; 84702; 86336; 86787; 86803; 86850; 86900; 86901; 87086; 87389

== ENCOUNTER → 2021-03-25 09:19 | Outpatient (CLI) | payer BC, SELFPAY ==
--- NOTE | 2021-03-25 09:19 | DI.US.S_ITS ---
PROCEDURE: US OB >= 14 WEEKS FETUS INDICATIONS: ANATOMY OUTSIDE/PRIOR DATING DATA: Last menstrual period (LMP): 11/04/2020 LMP-based estimated date of delivery (DELISA): 08/11/2021. First dating scan (date and location): 01/16/2021. Estimated date of delivery (DELISA) from first dating scan: 08/04/2021. The calculations are made using the ultrasound DELISA of 08/04/2021. TECHNIQUE: Real-time scanning was performed of the fetus, with image documentation and biometric measurements. COMPARISON: [facility], , OB <= 14 WEEKS FETUS, 01/26/2021, 10:49. [facility], , US OB >= 14 WEEKS FETUS, 11/15/2018, 9:41. FINDINGS: General: A single living intrauterine gestation is present. Presentation: Breech. Placenta: Placental position is anterior , without previa. Amniotic fluid index: 18.5 cm, normal range is 5-24 cm. heart rate: 147 beats per minute. Maternal cervical canal: 3.7 cm long. Normal lower limit is 2.5 cm. biometrics: Biparietal diameter: 5.0 cm, 21 weeks Head circumference: 18.5 cm, 20 weeks 6 days Abdominal circumference: 15.6 cm, 20 weeks 5 days Femur length: 3.3 cm, 20 weeks 2 days Clinically estimated gestational age: 21 weeks 1 day Composite gestational age from present scan: 20 weeks 5 days Estimated weight and percentile: 366 g; 20th percentile Anatomic survey: Neuro: Ventricles are non-dilated at less than 10 mm. Cisterna magna is normal at 3-11 mm. Cerebellum is normal in size and morphology. Nuchal skin fold: Normal at less than 6 mm between 14-21 weeks gestational age. Face: Nose and lips, facial profile are normal. Spine: No evidence for spina bifida. Heart: 4-chambered heart is present, with normal ventricular outflow tracts. Diaphragm: Diaphragm is intact. Stomach: Left-sided stomach is present. Kidneys: No hydronephrosis. Normal is less than 5 mm in 2nd trimester, less than 7 mm in 3rd trimester. Cord: 3-vessel cord has orthotopic insertion. Bladder: Normal in size. Extremities: All 4 extremities identified. IMPRESSION: 1. Normal interval growth. 2. Normal anatomic survey. We strive to produce accurate, complete, and clear reports of imaging services. To assist us in improving patient care, this report was composed using standard report templates and voice recognition software. Therefore, it may contain abnormal punctuation, insertions and/or omissions. Occasional wrong-word or sound-alike substitutions may occur. Though we review the report and make efforts to correct it, we do recommend that the report be read carefully in proper context to recognize any text inaccuracies. Dictated by: Yunier HERRERA Interpreted: Stef Wood MD on 03/25/2021 at 10:22 Transcribed by: MILE on 03/25/2021 at 10:26 Approved by: Stef Wood M.D. on 03/25/2021 at 20:05
== END ==
PROVIDERS: PCP Family Medicine; Referring Provider Obstetrics & Gynecology; Visit Provider Obstetrics & Gynecology
DX: Z34.82 Encounter for supervision of other normal pregnancy, second trimester (principal); Z3A.20 20 weeks gestation of pregnancy
CPT/HCPCS: 76811

== ENCOUNTER → 2021-05-15 09:50 | Outpatient (CLI) | payer BC, SELFPAY ==
[2021-05-15 11:57] LABS: Hematocrit 30.9 % (36-46); Hemoglobin 10.5 g/dL (12.0-16.0)
[2021-05-15 12:15] LABS: GTT (PREG) 1 Hour PP 50gm Dose 109 mg/dL (76-139)
== END ==
PROVIDERS: PCP Family Medicine; Referring Provider Obstetrics & Gynecology; Visit Provider Obstetrics & Gynecology
DX: Z34.82 Encounter for supervision of other normal pregnancy, second trimester (principal); Z3A.25 25 weeks gestation of pregnancy
CPT/HCPCS: 36415; 82950; 85014; 85018

== ENCOUNTER → 2021-07-15 12:27 | Outpatient (CLI) | payer BC, SELFPAY ==
[2021-07-16 10:20] LABS: Strep Grp B PCR POS for Grp B Strep
== END ==
PROVIDERS: PCP Family Medicine; Visit Provider Obstetrics & Gynecology
DX: Z36.85 Encounter for antenatal screening for Streptococcus B (principal); Z3A.36 36 weeks gestation of pregnancy
CPT/HCPCS: 87653

== ENCOUNTER → 2021-07-23 10:43 | Outpatient (CLI) | payer BC, SELFPAY | PROVIDERS: PCP Family Medicine; Visit Provider Physician Assistant Medical | DX: R31.9 Hematuria, unspecified (principal); Z3A.38 38 weeks gestation of pregnancy | CPT/HCPCS: 87086 ==

== ENCOUNTER 2021-07-28 07:13 | Inpatient (IN) | payer BC, SELFPAY ==
[2021-07-28 07:24] VITALS: BP 121/73
[2021-07-28 08:10] LABS: COVID19 -Nasal RAPID Negative (Negative)
[2021-07-28] MEDS: LACTATED RINGERS 1,000 ML 100 ML IV ×2 (08:29→13:24)
[2021-07-28 08:46] LABS: Add Manual Diff / Slide Review NO; Basophils Absolute Auto 100 /uL (0-100); Basophils Percent Auto 0.7 % (0-2); Eosinophils Absolute Auto 100 /uL (0-450); Eosinophils Percent Auto 0.7 % (2-4); Hematocrit 33.1 % (36-46); Hemoglobin 11.5 g/dL (12.0-16.0); Lymphocytes Absolute Auto 1400 /uL (1100-4500); Lymphocytes Percent Auto 16.9 % (25-40); Mean Corpuscular HGB Conc 34.8 % (30-36); Mean Corpuscular Hemoglobin 34.3 PG (26-34); Mean Corpuscular Volume 98.6 fL (80-100); Monocytes Absolute Auto 700 /uL (0-900); Monocytes Percent Auto 8.7 % (3-14); Neutrophils Absolute Auto 5800 /uL (1500-7000); Platelet Count 181 X10^3/uL (150-400); Red Blood Cell Count 3.35 X10^6/uL (4.0-5.2); Red Cell Distribution Width 14.6 % (11.6-14.8)
[2021-07-28] MEDS: OXYTOCIN PREMIX 30 UNIT/500 ML PLAST..BAG IV (08:48)
--- NOTE | 2021-07-28 09:19 | P.HPOB_ITS ---
OB HPI Date/Time Date of admission: 07/28/21 Date Patient Seen: 07/28/21 Time Patient Seen: 09:19 History of Present Condition Chief complaint: DELISA Calculator Estimated Delivery Date Method Current WG Current Estimate 08/04/21 Ultrasound #1 39w 0d Other Estimates 08/11/21 LMP (Certain) 38w 0d 08/05/21 Ultrasound #2 38w 6d Estimated Gestational Age (weeks): 39 : 4 Para: 2 care: good care, initiated at week # (12), number of visits (9) and pounds weight gain (39) Dating criteria OB: LMP confirmed by 1st trimester US Ultrasounds: normal 1st trimester US and normal mid trimester US Obstetrical complications: none Medical complications OB: none Indications Indication for induction OB: other (AMA) Preadmission Labs Last OB Lab Results: Blood Type A Positive 07/28/21 08:25 07/28/21 Antibody Screen Negative 07/28/21 08:25 07/28/21 Hematocrit 33.1 % (36-46) L 07/28/21 08:25 07/28/21 Hemoglobin 11.5 g/dL (12.0-16.0) L 07/28/21 08:25 07/28/21 Hepatitis B Surface Antigen Negative s/c (NEGATIVE) 02/23/21 10:49 1 04/26/20 Hepatitis C Antibody Negative s/c (NEGATIVE) 02/23/21 10:49 02/23/21 Rubella Antibody 24.3 IU/mL (>15) 02/23/21 10:49 02/23/21 Varicella-Zoster IgG Antibody 946 index (Immune >165) 02/23/21 10:49 02/23/21 Glucose 1 Hour 109 mg/dL (76-139) 05/15/21 11:19 05/15/21 Group B Streptococcus (PCR) Pos for grp b strep H 07/15/21 12:27 07/15/21 -: Chlamydia screen: negative and Gonorrhea screen: negative -: PAP smear: Normal Genetic Screens: Quad screen: Normal Prior (ies) Past Pregnancies Del. Date GA/Weeks Labor Lgth Wt Sex Route Outcome Anesthesia Place Delv Breastfeed Preg Comp Name 09/19/14 14 spontaneous WA on ba se IVÁN spontaneous 09/28/15 39.0 12 8 lb 1 oz Female vaginal live - full ter m epidural Dr Sidhu Attempted : supplemented none Carmina 01/07/19 39.1 18 8 lb 7.9 oz Male vaginal vacuum live - full term epidural IH Dr Sigala Attemped : supplem entation. none Andrea Delivery Date: 09/19/14 Last Updated by: Bettie Ordonez R.N. *D&C Delivery Date: 09/28/15 Last Updated by: Bettie Ordonez R.N. *2nd Degree Tear with Repair. *Healed well. *Loss of her Mother at 3 months PP. Delivery Date: 01/07/19 Last Updated by: Bettie Ordonez R.N. *Cat II FHR. *Nuchal X 1. *Left Labial tear with Repair. *PP OK. Evaluation Evaluation Baseline heart rate: 140 Variability: Moderate (11-25) monitor accelerations: Present Monitor Decelerations: Absent Contraction Frequency (minutes): 8 Uterine Contraction Intensity: Mild Status: Category l Dilation (cm): 1 Effacement (%): 80 station: -1 Position of cervix: anterior Consistency: soft COUNTS INCLUDE 234 BEDS AT THE [facility] Medical History (Updated 02/23/21 @ 10:04 by Jessica Sigala MD) Acne Anemia (~2018) C. difficile enteritis (~2015) Chicken pox Cystic hygroma (~09/2014) Fibroids (~2014) Fracture, ankle IBS (irritable bowel syndrome) Infertility Measles Migraine Rosacea (~2016) SAB (spontaneous ) (~09/2014) (spontaneous vaginal delivery) (~09/28/15) (spontaneous vaginal delivery) (~01/07/19) UTI (urinary tract infection) Surgical History (Updated 02/22/21 @ 20:52 by Fang Small) Anesthesia History of colonoscopy (~2019) Status post dilation and curettage (09/19/14) Family History (Updated 02/22/21 @ 20:53 by Fang Small) Brother Age: 47 Healthy adult Brother Age: 36 Seizures Father Age: 73 Cancer Heart disease Hypertension History of open heart surgery Aortic aneurysm Vertigo Skin cancer Grandmother Cancer Grandfather Cancer Grandmother Cancer Sister Age: 49 Precancerous lesion Sister Age: 36 No problems noted. Mother Cancer Lung cancer Ovarian cancer Adopted [place] Family/Other Diabetes mellitus Grandfather Family estrangement Social History marital status: number of children: 2 household members: spouse and children lives independently: Yes caregiver/support person: No education level: college occupational status: unemployed current occupational exposures/hazards: No aj/yazdanism: [employer] special aj needs: No Smoking Status: Never smoker second hand exposure: Yes (Her mother smoked her entire life.) alcohol intake: former (Pre- : on occasion/social) substance use type: does not use Meds Home Medications and Allergies Home Medications Medication Instructions Recorded Confirmed Type prenat.vits,stewart,coc-avtu-vqggb 1 tab PO DAILY 05/31/18 07/28/21 History probiotics PO 08/02/19 07/23/21 History Allergies Allergy/AdvReac Type Severity Reaction Status Date / Time cephalexin [CEPHALEXIN] AdvReac Severe C.Difficile Verified 07/23/21 10:07 OB Exam Narrative Exam Narrative: Generally: A well-developed, well-nourished female in no acute distress FH: 39 cm EFW: 8# Ext: no edema Objective Labs Result Diagrams: 07/28/21 08:25 Labs: Laboratory Results - last 24 hr 07/28/21 07/28/21 07:42 08:25 WBC 8.0 RBC 3.35 L Hgb 11.5 L Hct 33.1 L MCV 98.6 MCH 34.3 H MCHC 34.8 RDW 14.6 Plt Count 181 Neut % (Auto) 73.0 Lymph % (Auto) 16.9 L [place] % (Auto) 8.7 Eos % (Auto) 0.7 L Baso % (Auto) 0.7 Neut # (Auto) 5800 Lymph # (Auto) 1400 [place] # (Auto) 700 Eos # (Auto) 100 Baso # (Auto) 100 SARS-CoV-2 (PCR) Negative Assessment and Plan Assessment and Plan Assessment and Plan narrative: Assessment: 39 weeks AMA GBS positive Induction of labor Plan: Pitocin per protocol 2 Epidural prn AROM when able Expectant management to Pen G for GBS Time Spent with Patient Total time spent with greater than 50% in coordination of care (as documented) at patient's floor/unit and/or counseling patient:: 15-24 minutes
[2021-07-28] MEDS: PENICILLIN G POTASSIUM 5,000,000 UNIT in DEXTROSE 5% IN WATER 250 ML IV (09:27)
[2021-07-28] MEDS: PENICILLIN POTASSIUM IV (14:02)
[2021-07-28] MEDS: DEXTROSE 5% IV (14:02)
[2021-07-28] MEDS: WATER IV (14:02)
[2021-07-28 16:43] VITALS: TEMP 36.9
[2021-07-28] MEDS: IBUPROFEN 600 MG TABLET PO ×2 (16:43→22:57)
[2021-07-28 16:47] VITALS: TEMP 36.9
[2021-07-28] MEDS: ACETAMINOPHEN 325 MG TABLET 650 MG PO ×2 (16:47→22:56)
--- NOTE | 2021-07-28 21:47 | PM.OBPRVD ---
Events: Labor Induction Labor & Delivery Delivery date: 07/28/21 Intrapartal Events: None Cervical ripening method: none Induction method: per pitocin protocol Delivery augmentation: rupture of membranes Delivery monitor: external FHT and external uterine Route of delivery: Episiotomy description: None L&D Laceration Description: None Estimated blood loss (mL): 200 Anesthesia Type: Epidural (inadequate pain relief) Complications: None Narrative: Pt complete and pushed with 2 contractions. At 1529, a live male infant delivered spontaneously over an intact perineum. No nuchal cord. The remainder of the body delivered without difficulty and was placed on mom's abdomen. The cord was double-clamped and cut after it stopped pulsing. Cord bloods were obtained. Pitocin was given in the IVF's. The placenta delivered intact with a 3 vessel cord at 1535. Fundus massaged to firm. No lacerations. EBL: 200cc. Apgars 9 at 1 minute and 9 at 5 minutes. . Epidural, but inadequate pain relief. Mom and infant stable to recovery. Baby 1: Infant gender: Male Presentation: vertex Position: Left Occiput Anterior Placenta delivery description: Spontaneous Cord Vessel Description: 3 Vessels, Reduced and Clamped/Cut score (1 min): 9 score (5 min): 9 weight: 8 lb 0.2 oz Plan for aftercare: Routine care
[2021-07-29 04:55] LABS: Hematocrit 31.4 % (36-46); Hemoglobin 10.9 g/dL (12.0-16.0)
[2021-07-29] MEDS: IBUPROFEN 600 MG TABLET PO ×2 (05:22→11:33)
[2021-07-29] MEDS: ACETAMINOPHEN 325 MG TABLET 650 MG PO ×2 (05:23→11:34)
--- NOTE | 2021-07-29 07:49 | PM.OBDS.1 ---
Discharge Providers Provider Date of admission: 07/28/21 07:13 Discharge Date: 07/29/21 Primary care physician: Gabby Henning MD Consults: 07/29/21 15:41 Consult to Chronometer Adjuster Routine Comment: Discharge provider: Wade Amor MD Summary Hospital Course Date Patient Seen: 07/29/21 Time Patient Seen: 13:25 Diagnoses: Intrauterine gestation, Wiley, vertex, 39+ 0 weeks gestational age Advanced maternal age Group B strep carrier Hospital Course: Due to advanced maternal age, the patient was admitted on 07/28/2021 for induction of labor and initiation of IV antibiotic therapy for GBS positive status. Patient progressed nicely and AROM performed on the afternoon of 07/28/2021 following MIAH placement resulted in spontaneous vaginal of a viable male infant Apgars of 9 and 9 with a weight of 3636 g. Patient experienced no lacerations and estimated blood loss was only 200 cc. Following delivery the patient has done extremely well with prompt return of bowel and bladder function, she is ambulating independently, tolerating a regular diet, and her pain is well controlled with oral medications. She will be discharged at this time to home in an afebrile normotensive condition with medications to include vitamins and [id number]-[id number] Tylenol/ibuprofen for pain relief. Prior to discharge the patient was counseled regarding precautionary symptoms, limitations of activity, medications, and plans for follow-up which will be in [address] Michelle Sigala. Peripartum Data Infant Delivery Method: Natural Vaginal Laceration Description: None Episiotomy description: None complications: none [place] 1: Gender: Male Status at Discharge Cognitive/behavioral status at discharge: oriented Overall status at discharge: patient is progressing back to baseline Time Spent with Patient Time attestation: Total time spent providing and/or coordinating discharge services: Time spent: Less than 30 minutes Objective Labs Result Diagrams: 07/29/21 04:43 Labs: Laboratory Results - last 24 hr 07/28/21 07/28/21 07/28/21 07:42 08:25 08:25 WBC 8.0 RBC 3.35 L Hgb 11.5 L Hct 33.1 L MCV 98.6 MCH 34.3 H MCHC 34.8 RDW 14.6 Plt Count 181 Neut % (Auto) 73.0 Lymph % (Auto) 16.9 L [place] % (Auto) 8.7 Eos % (Auto) 0.7 L Baso % (Auto) 0.7 Neut # (Auto) 5800 Lymph # (Auto) 1400 [place] # (Auto) 700 Eos # (Auto) 100 Baso # (Auto) 100 SARS-CoV-2 (PCR) Negative Blood Type A Positive Antibody Screen Negative 07/29/21 04:43 WBC RBC Hgb 10.9 L Hct 31.4 L MCV MCH MCHC RDW Plt Count Neut % (Auto) Lymph % (Auto) [place] % (Auto) Eos % (Auto) Baso % (Auto) Neut # (Auto) Lymph # (Auto) [place] # (Auto) Eos # (Auto) Baso # (Auto) SARS-CoV-2 (PCR) Blood Type Antibody Screen Exam Const General: cooperative and comfortable Nutritional Appearance: thin Orientation: alert and oriented x3 HENMT Head: normal to inspection Ears: hearing grossly normal bilaterally Eyes General: appearance normal, both eyes and all related structures EOM: EOM intact bilaterally Neck Neck: normal visual inspection Resp Effort & Inspection: normal respiratory effort and able to speak in complete sentences GI Inspection: normal to inspection Palpation: soft, no hepatosplenomegaly and mass (Firm, nontender, U -4 fundus) Extrem General: no calf tenderness Psych Appearance: grossly normal Mental Status: mental status grossly normal Speech and Movement: speech and movement normal Mood: congruent mood Affect: normal affect Attitude: cooperative Thought Process: normal Thought Content: normal Judgment: judgment good Discharge Plan Discharge Plan Patient Disposition: Home Provider Discharge Comment: Call with fever, chills or bleeding vaginally more than a pad in an hour Discharge orders & Medications Prescriptions: Continued probiotics PO 0RF prenat.vits,stewart,xig-pfor-vploq tablet 1 tab PO DAILY 0RF Follow up/Referrals: Jessica Sigala MD [Physician] - 6 Weeks (Please follow up with on TuesdaySeptember 08 at 10:30am with a 10:15am check in time. If you have any questions/concerns or need to reschedule please call .) Diet/Activity/Treatments Diet: Regular Activity: Nothing in the vaginal for 6 weeks Skin/Wound/Dressing Care Report to your healthcare provider any signs of infection, such as:: chills, fever, increased pain, unusual drainage and unusual redness Visit Report/Discharge Packet Instructions: DI for Labor and Delivery, Vaginal Stand Alone Forms: Discharge: Care Discharge Data Primary Care Provider: Gabby Henning
[2021-07-29] MEDS: PRENATAL VIT,CALC/IRON/FOLIC 1 TABLET 1 TAB PO (08:17)
[2021-07-29] MEDS: LANOLIN OINT 7 GM 1 APPLIC TOP (08:18)
[2021-07-29 09:39] VITALS: BP 110/72; PULSE 82; RESP 16; TEMP 37.2
[2021-07-29 11:33] VITALS: TEMP 37.4
[2021-07-29 11:34] VITALS: TEMP 37.4
== END 2021-07-29 16:30 | disposition home or self-care (01) | DRG 807 ==
PROVIDERS: Admitting Provider Obstetrics & Gynecology; PCP Family Medicine; Referring Provider Obstetrics & Gynecology; Visit Provider Obstetrics & Gynecology
DX: O99.824 Streptococcus B carrier state complicating childbirth (principal); Z37.0 Single live birth; Z3A.39 39 weeks gestation of pregnancy
CPT/HCPCS: 01967; 36415; 59050; 59400; 85014; 85018; 85025; 86850; 86900; 86901; 87635; C9803; G0379; J2540; J2590